=== PATIENT | male | born 1995 | race Caucasian/White ===

== ENCOUNTER 2022-10-10 11:51 | Emergency (ER) | payer OTHER ==
[~2022-10-10] VITALS: Ht 172.7 cm; Wt 87.6 kg
[2022-10-10 11:52] VITALS: TEMP 97.4
[2022-10-10] MEDS ORDERED: BAYE325T13 PO (12:03)
[2022-10-10 13:17] VITALS: BP 133/73; O2SAT 98
== END 2022-10-10 13:18 | disposition home or self-care (01) ==
LOC: M ED 11:51 → EDBD 11:51 → M ED 13:18
DX: S93.432A Sprain of tibiofibular ligament of left ankle, initial encounter (principal); W50.0XXA Accidental hit or strike by another person, initial encounter; Y92.89 Other specified places as the place of occurrence of the external cause; Y93.A2 Activity, calisthenics; Y99.1 Military activity

== ENCOUNTER 2023-02-07 22:36 | Emergency (ER) | payer OTHER ==
[~2023-02-07] VITALS: Ht 172.7 cm; Wt 86.5 kg
[~2023-02-07 22:36] MED LIST: BAYE325T13 PO
[2023-02-07 23:32] LABS: BASO # 0.1 10^3/uL (0.0-0.2); BASO % 1.1 % (0.0-1.0); EOS # 0.4 10^3/uL (0.0-0.5); EOS % 4.9 % (0.0-3.0); HEMATOCRIT 47.3 % (42.0-52.0); HEMOGLOBIN 16.1 g/dl (13.5-17.5); LYMPH # 2.9 10^3/uL (1.5-5.0); LYMPH % 33.3 % (24.0-44.0); MEAN CORPUSCULAR HEMOGLOBIN 29.4 pg (27.0-33.0); MEAN CORPUSCULAR VOLUME 86.3 fl (80.0-96.0); MONO # 0.8 10^3/uL (0.0-0.8); MONO % 9.1 % (2.0-8.0); NEUTROPHILS # 4.5 10^3/uL (1.5-8.5); NEUTROPHILS % 51.3 % (36.0-66.0); PLATELET COUNT, AUTOMATED 291 10^3/uL (150-450); RED BLOOD COUNT 5.48 10^6/uL (4.30-6.10); WHITE BLOOD COUNT 8.7 10^3/uL (4.0-10.0)
[2023-02-07 23:59] VITALS: BP 146/80; TEMP 96.9; O2SAT 99
[2023-02-07 23:59] LABS: CK-MB VALUE MASS 1.3 NG/ML (<3.6)
[2023-02-08 00:02] LABS: BLOOD UREA NITROGEN 24 MG/DL (9-23); CALCIUM LEVEL 9.3 MG/DL (8.5-10.1); CARBON DIOXIDE LEVEL 32 MMOL/L (20-31); CHLORIDE LEVEL 105 MMOL/L (98-107); CREATININE FOR GFR 1.15 MG/DL (0.70-1.30); GLOMERULAR FILTRATION RATE > 60.0 (>60); GLUCOSE, FASTING 90 MG/DL (60-100); POTASSIUM SERUM 4.4 MMOL/L (3.5-5.1); SODIUM LEVEL 142 MMOL/L (136-145)
[2023-02-08 00:03] LABS: CPK CREATINE PHOSPHOKINASE 281 U/L (46-171); MB/CK RELATIVE INDEX 0.46 (< OR =4)
[2023-02-08 01:12] LABS: MB/CK RELATIVE INDEX 0.37 (< OR =4)
== END 2023-02-08 00:48 | disposition left against medical advice (07) ==
LOC: M ED 22:36
DX: Z53.21 Procedure and treatment not carried out due to patient leaving prior to being seen by health care provider (principal)